=== PATIENT | male | born 1995 | race Two or more races ===

== ENCOUNTER 2021-06-26 13:14 | Outpatient (CLI) | payer OTHER ==
[2021-06-26 14:04] VITALS: BP 124/76
--- NOTE | 2021-06-26 14:04 | SLEEP CARE CONSULTATION ---
Information from patient questionnaire entered by Jasmyne Escobedo. I have reviewed and concur with the information entered by Jasmyne Escobedo. This document represents the service I personally performed and the decisions made by me, Dora Leal ARNP. History of Present Illness Service Date and Time: 06/26/2021 1314 Reason for Visit: New patient Chief Complaint: reports: Unrefreshed sleep, Snoring, Excessive daytime sleepiness, Observed pauses in breathing, Fatigue, Frequent awakenings at night Date of Onset: 3 Years Usual bedtime: 8634-5230 Time it takes to fall asleep: 2-3 hours Snores at night: Yes Observed to quit breathing while asleep: Yes Sleeps alone due to snoring: Yes Number of times waking at night: 2-3 Reasons for waking at night: reports: Gasping for air, Other (unknown reason). denies: Choking, Snoring Toss, Turn, or Twitch while sleeping: Yes Recalls having dreams: Yes Usually gets out of bed at: 0300 to 0600, usually 0600 but can be 0700 Feels refreshed in the morning: No Morning headache: Yes (hx of migraines, takes sumatriptin prn; 3-4 x a week) Sleepy or fatigued during the day: Yes Ever fallen asleep while driving: No Takes day naps: No (rarely, 1-2 hours) Dreams during day naps: Yes Prior sleep studies: No Additional HPI information: I had the pleasure of seeing CASSANDRA NAVARRO today regarding the possibility of him having a sleep disorder. His current complaints are excessive daytime sleepiness, fatigue, frequent night awakenings, observed pauses in breathing and unrefreshed sleep. He has been told that he snores moderately but not overly loud. He has had other wake him up because he stops breathing at night. He states he also twitches in his sleep according to roommates. He feels less rested in the morning for a long time and seems to be getting worse. He has had times that he has woke up gasping for air, this is not every night. He also wakes up with headaches 3-4 days a week on average. He has a history of migraines for which he take sumatriptan as needed. 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 Patient is Single and lives in [place]. Have you smoked in the past 12 months: No Alcohol use: Yes Alcohol amount and frequency: 1-2 on weekends Caffeine use: No Family History Family history of sleep disordered breathing: No Family Hx Sleep Apnea: Father: Snoring Allergies and Home Medications Drug allergies reviewed: Yes (Amoxicillin) Home medication list reviewed: Yes Allergy and home medication list: Sumatriptin, prn Depression/anxiety medication, does not remember name Review of Systems Cardiovascular: denies: high blood pressure Respiratory: denies: shortness of breath Gastrointestinal: denies: heartburn Neurological: reports: headaches Psychiatric: reports: anxiety, depression. denies: mood disorder Ear/Nose/Throat: reports: wisdom teeth removed. denies: sinus problems, injury to nose, tonsillectomy Endocrine: denies: thyroid disease Immunologic: reports: allergies to food or environment (shellfish, seafood) Physical Exam Blood Pressure: 124/76 Cuff size: wrist Heart Rate: 105 O2 Saturation: 98 Height: 5 ft 7 in Weight: 187 lb Body Mass Index: 29.2 BMI Classification: Overweight Neck circumference: 15.25 (inches) Nostrils: patent to airflow Mouth and throat: narrow oropharynx Soft palate: long Hard palate: normal Uvula: normal Uvula visualization: 100% Mallampati Class I Tongue: enlarged in size with teeth little on lateral edges Tonsils: 2+ Neck: normal w/o lymphadenopathy or thyromegaly Heart: regular rate and rhythm Lungs: clear bilaterally Impression and Plan 1. Suspected Obstructive Sleep Apnea-Hypopnea Syndrome, as suggested by a history of loud and irregular snoring, observed cessation of breath while asleep, gasping or choking in sleep, morning headache, frequent awakening during the night, unrefreshed sleep, cognitive impairment, and excessive daytime sleepiness. Narrow oropharynx and obesity are common predisposing factors for obstructive sleep apnea-hypopnea syndrome. I recommend proceeding to polysomnography to confirm the diagnosis and to assess severity. If the patient has significant sleep disordered breathing, a manual CPAP titration study will also be performed to find the optimal treatment pressure. I informed the patient of what the sleep studies involve and after some discussion, obtained agreement to proceed. The pathophysiology of obstructive sleep apnea-hypopnea syndrome was discussed with the patient and health risks of cardiovascular and cerebrovascular disease if not treated. AAS brochure for obstructive sleep apnea-hypopnea syndrome given and reviewed. Risks of drowsy driving discussed in detail and patient advised to avoid long distance driving and to slab puller at the first sign of drowsiness. Patient agreed to plan. * Schedule polysomnography +- manual CPAP titration study and return in 1-2 weeks after the study to discuss result and initiate therapy. * Avoid long distance driving or driving when feeling sleepy. * Avoid alcohol, sedative and muscle relaxant around bedtime. * Attempt to lose weight. * Review instructions provided by trained office staff on how to prepare for the sleep study. * Return for follow-up after sleep study completed. Counseling Topics: Weight loss health impact Visit Type: In Office Time Spent with Patient (minutes): 31 Provider Statement: I spent 100% of the Face to Face Visit with the patient with greater than 50% spent counseling the patient and coordination of care.
== END 2021-06-26 13:15 | disposition home or self-care (01) ==
LOC: SC 13:14 → EDSEX 13:40
PROVIDERS: ATTEND Nurse Practitioner Family
DX: R06.83 Snoring (principal); R06.81 Apnea, not elsewhere classified; G47.8 Other sleep disorders; R51.9 Headache, unspecified; G47.10 Hypersomnia, unspecified; R41.89 Other symptoms and signs involving cognitive functions and awareness
CPT/HCPCS: 99203; 99212

== ENCOUNTER 2021-07-06 14:25 | Outpatient (CLI) | payer OTHER | END 2021-07-06 14:26 | disposition home or self-care (01) | LOC: SC 14:25 | PROVIDERS: ATTEND Nurse Practitioner Family | DX: R06.83 Snoring (principal); R51.9 Headache, unspecified; G47.8 Other sleep disorders; G47.10 Hypersomnia, unspecified; R06.81 Apnea, not elsewhere classified; R41.89 Other symptoms and signs involving cognitive functions and awareness | CPT/HCPCS: 95806 ==

== ENCOUNTER 2021-07-24 09:36 | Outpatient (CLI) | payer OTHER ==
--- NOTE | 2021-07-24 10:27 | SLEEP CARE CONSULTATION ---
Information from patient questionnaire entered by Jasmyne Escobedo. I have reviewed and concur with the information entered by Jasmyne Escobedo. This document represents the service I personally performed and the decisions made by , Dora Leal ARNP. History of Present Illness Service Date and Time: 07/24/2021 0936 Initial [place] Sleepiness Scale score: 7 (in 06/2021) Current [place] Sleepiness Scale score: 3 Additional HPI information: CASSANDRA NAVARRO returns for follow up and results of the recently performed home sleep study. The patient was informed of the following findings: No significant sleep disordered breathing with an average AHI of 3.9 and corona oxygen saturation of 92%. I explained the pathophysiology behind obstructive sleep apnea. Patient does not have sleep apnea and was advised how weight gain could increase the risk of developing sleep apnea in the future. I strongly encouraged the patient to lose weight. Patient has light snoring. Snoring can be reduced by weight loss. Weight loss is best achieved with diet consult. Patient instructed to contact PCP for referral. Snoring can also be treated with an oral appliance from a dentist. Advised to check insurance coverage. In addition, an ENT evaluation can be do to see if other treatment is indicated. Patient counseled not drink alcohol less than 4 hours before bedtime as it can increase snoring and apnea. Patient was cautioned about risks of drowsy driving until sleepiness symptoms resolve. Patient denies drowsy driving. Sleep Study - Results Type of Sleep Study: Home sleep study Prior sleep studies: Yes Year and Where: 07/2021 [facility] Polysomnography/Home Sleep Study results: Physician Impression: The quality of the study is good. The length of the study is adequate (> 240 minutes). Please also see the tabulated and graphic data. 1. No significant sleep disordered breathing, with an AHI of 3.9/hr and corona SaO2 of 92%. During the study, the patient had 23 apneas (21 obstructive, 0 central, 2 mixed) and 9 hypopneas. The longest episode lasted 78.0 seconds. The respiratory events occurred more frequently during non-supine sleep (supine AHI was 2.5 and non-supine, 4.19). Allergies and Home Medications Home medication list reviewed: Yes (no changes) Review of Systems Review of systems same as previous: Yes (no changes) Physical Exam Heart Rate: 76 O2 Saturation: 97 Height: 5 ft 7 in Weight: 180 lb 3.2 oz Body Mass Index: 28.2 BMI Classification: Overweight Impression and Plan 1. Insomnia, unspecified. Patient is HST showed no sleep disordered breathing or hypoxia. Patient continues to have difficulty falling asleep, averaging 2 to 3 hours each night. He has tried OTC melatonin at recommended doses, 5 mg, without any improvement of being able to fall asleep. Once he does fall asleep he will wake up 2-3 times and have difficulty falling back to sleep. He will sometimes wake up at 3 AM and not able to return to sleep at all. He normally wakes up between 6 and 7 to be able to get to work. He spent 6 years with a rotating sleep schedule from work that changed every 3 months. He has been on more of a regular schedule for the last year and a half. He does have history of anxiety and depression with some PTSD. He is currently being treated with medication but he cannot remember its name. Patient would like to have some help to be able to get to and stay asleep, possibly medication. Patient has been being seen and discussed his sleeping difficulties with his regular doctor. He has made changes including eliminating electronics from the bedroom, caffeine and he does not exercise prior to going to bed. He is not a clock watcher either. First I counseled the patient on the importance of a regular sleep schedule, starting with the wake time. Additionally too much time spent in bed can cause more sleep disruption as most people only need 7-9 hours of sleep. Thus patient advised to restrict time in bed to 7-8 hours. I advised him to lay down at 10- 10:30 PM instead of 8-9 PM which has been his normal habit. He was also advised to try to get up at 0600 each morning. In addition, it is important to have a relaxing ritual about 30-60 minutes before bedtime to allow the mind/body transition from an active day to sleep. A warm bath or shower is another way to assist transition to sleep. In addition, it is important to have a sleep environment conducive to sleep such as a comfortable bed, comfortable temperature and quiet. If unable to go to sleep in an estimated 20 minutes of more, it is advised to leave the bedroom and engage in a quiet activity until sleepy enough to return to bed. This is to be repeated as often as necessary to associate the bed with sleep and not frustration to get to sleep. A sleep diary will be completed for the next 2 weeks to assist implementation of recommendations and for further evaluation of sleep concerns. * 2 week sleep diary * Go to bed about 10 PM * Limit time in bed to 7.5-8 hours * Attempt to lose weight * Avoid alcohol consumption near bedtime * The patient is cautioned about driving until sleepiness is completely resolved. * Return in about 2 weeks Counseling Topics: Weight loss health impact Visit Type: In Office Time Spent with Patient (minutes): 29 Provider Statement: I spent 100% of the Face to Face Visit with the patient with greater than 50% spent counseling the patient and coordination of care.
== END 2021-07-24 09:37 | disposition home or self-care (01) ==
LOC: SC 09:36
PROVIDERS: ATTEND Nurse Practitioner Family
DX: G47.00 Insomnia, unspecified (principal); E66.3 Overweight; Z68.28 Body mass index [BMI] 28.0-28.9, adult
CPT/HCPCS: 99212; 99213

== ENCOUNTER 2021-10-11 09:42 | Outpatient (CLI) | payer OTHER ==
--- NOTE | 2021-10-11 12:29 | MRI Report ---
PROCEDURE: Lumbar Spine W/O INDICATIONS: LOW BACK PAIN TECHNIQUE: Noncontrast sagittal T1 spin echo and T2 fast echo, sagittal STIR, axial T1 and T2 fast spin echo thr ough the lumbar spine. In cases with scoliosis, additional coronal T2 fast spin echo may be performe d. COMPARISON: None. FINDINGS: Image quality: Motion artifact is noted. Alignment and Curvature: There is normal bony alignment. Bone Marrow: Marrow is of normal overall signal. No acute vertebral body compression fractures. Spinal Cord: Conus medullaris terminates at the L1 level. Visualized cord demonstrates normal signa l and size. Paraspinous Soft Tissues: No paravertebral masses. T12-L1: Normal in appearance. L1-L2: Normal in appearance. L2-L3: Normal in appearance. L3-L4: Normal in appearance. L4-L5: Normal in appearance. L5-S1: Normal in appearance. IMPRESSION: Normal MRI, without a cause of low back pain identified. Reviewed by: Alexis Dubois MD on 10/11/2021 11:28 AM [facility] Approved by: Alexis Dubois MD on 10/11/2021 11:28 AM [facility] Station ID: [id number]
== END 2021-10-11 09:43 | disposition home or self-care (01) ==
LOC: EDSEX → DI 09:42
DX: M54.50 Low back pain, unspecified (principal)